=== PATIENT | male | born 1990 | race Caucasian/White ===

== ENCOUNTER 2024-10-18 13:56 | Emergency (ER) | payer BC, MEDICAID ==
[2024-10-18] MEDS: Ketorolac 30 MG/ML SDV IVPUSH ONE (14:09)
[2024-10-18] MEDS: Aspirin 81 MG Tab.Chew PO ONE (14:13)
[2024-10-18 14:18] LABS: BASOPHILS ABSOLUTE AUTO 0.1 x10-3/uL (0.0-0.3); BASOPHILS PERCENT AUTO 0.7 % (0.3-3.8); EOSINOPHILS ABSOLUTE AUTO 0.2 x10-3/uL (0.0-0.6); EOSINOPHILS PERCENT AUTO 2.1 % (0.1-6.8); HEMATOCRIT 46.1 % (38.3-50.1); HEMOGLOBIN 16.1 g/dL (12.9-17.7); LYMPHOCYTES ABSOLUTE AUTO 3.3 x10-3/uL (0.5-4.5); LYMPHOCYTES PERCENT AUTO 42.9 % (15.8-45.3); MEAN CORPUSCULAR HEMOGLOBIN 31.6 pg (27.0-33.3); MEAN CORPUSCULAR HGB CONC 34.8 g/dL (28.7-35.3); MEAN CORPUSCULAR VOLUME 90.7 fL (80.8-98.7); MEAN PLATELET VOLUME 7.9 fL (6.7-11.0); MONOCYTES ABSOLUTE AUTO 0.5 x10-3/uL (0.0-1.2); MONOCYTES PERCENT AUTO 6.4 % (5.5-15.2); NEUTROPHILS ABSOLUTE AUTO 3.7 x10-3/uL (1.7-6.9); NEUTROPHILS PERCENT AUTO 47.9 % (40.3-71.8); PLATELET COUNT,PLT 296 x10(3)uL (117-477); RED BLOOD CELL COUNT 5.09 x10(6)uL (3.90-5.90); RED CELL DISTRIBUTION WIDTH 12.7 % (12.4-15.0); WHITE BLOOD CELL COUNT,WBC 7.6 x10-3/uL (3.2-10.1)
[2024-10-18] MEDS: Sodium Chloride 0.9% 1,000 ML IV SCH (14:20)
[2024-10-18 14:22] LABS: BLOOD UREA NITROGEN,BUN 10 mg/dL (7-18); BUN/CREATININE RATIO 6.7 (9-20); CALCIUM 9.5 mg/dL (8.6-10.2); CARBON DIOXIDE,CO2 26 mmol/L (21-32); CHLORIDE,CL 106 mmol/L (100-110); CREATININE 1.5 mg/dL (0.70-1.30); ESTIMATED GFR 63 mL/min (>60); GLUCOSE RANDOM 126 mg/dL (80-116); POTASSIUM,K 4.4 mmol/L (3.5-5.3); SODIUM,NA 143 mmol/L (135-145)
[2024-10-18] MEDS: EPINEPHrine 1:10,000 1 MG/10 ML Syringe IVPUSH PRN (14:26)
[2024-10-18 14:28] LABS: A/G RATIO 1.3; ALANINE AMINOTRANSFERASE,ALT 79 U/L (12-36); ALBUMIN 4.2 g/dL (3.5-5.2); ALKALINE PHOSPHATASE 79 IU/L (56-112); ASPARTATE AMNIOTRANSFERASE,AST 40 IU/L (5-25); BILIRUBIN TOTAL 0.4 mg/dL (0.1-1.3); PROTEIN TOTAL,TP 7.4 g/dL (6.0-8.0)
[2024-10-18] MEDS: Amiodarone 150 MG/3 ML SDV IVPUSH ONE (14:29)
[2024-10-18] MEDS: Sodium Bicarbonate 8.4% 50 MEQ/50 ML Syringe IVPUSH ONE ×2 (14:36→15:09)
[2024-10-18] MEDS: Calcium Gluconate 10% 1 GM/10 ML SDV IVPUSH ONE (14:39)
[2024-10-18] MEDS: Calcium Chloride 10% 1 GM/10 ML Syringe IVPUSH ONE (14:39)
[2024-10-18] MEDS: Tenecteplase 50 MG Kit IV ONE (14:43)
[2024-10-18] MEDS: Lidocaine 2% 100 MG/5 ML Syringe IVPUSH ONE (14:49)
[2024-10-18 16:50] VITALS: BP 130/88; PULSE 56
== END 2024-10-18 15:19 | disposition expired ==
LOC: FB.ED 13:56
DX: I46.9 Cardiac arrest, cause unspecified (principal)
CPT/HCPCS: 31500; 80053; 84484; 85025; 85379; 92950; 93005; 93010; 96374; 96375; 96376; 99291; 99291-25; A9270-GY; J0282; J3101; J7030